=== PATIENT | male | born 1995 | race Caucasian/White ===

== ENCOUNTER 2019-11-28 02:53 | Inpatient (IN) | payer OTHER, SELFPAY ==
[2019-11-28] VITALS (26 sets, daily range): BP systolic 98–149; BP diastolic 51–87; O2SAT 98
[~2019-11-28] VITALS: Ht 185.4 cm; Wt 81.4 kg
[2019-11-28] MEDS ORDERED: PROPOFOL 1,000 MG/100 ML VIAL As Ordered ONE (03:01)
[2019-11-28] MEDS ORDERED: NS 1,000 ML IV ONE (03:15)
[2019-11-28 03:45] LABS: ABG BASE EXCESS -3.5 (-2.0-2.0); ABG HCO3 24.6 MEQ/L (22.0-26.0); ABG O2 SATURATION 97.6 % (95.0-99.0); ABG PARTIAL PRESSURE CO2 54.8 mmHg (35.0-45.0); ABG PARTIAL PRESSURE O2 111.5 mmHg (75.0-100.0); ABG STANDARD HCO3 21.6 MEQ/L (22.0-26.0); ABG TOTAL CO2 26.3 MEQ/L (22.0-29.0)
[2019-11-28 03:51] LABS: BASO # 0.1 10^3/uL (0.0-0.2); BASO % 0.4 % (0.0-1.0); EOS % 0.3 % (0.0-3.0); HEMATOCRIT 55.9 % (42.0-52.0); HEMOGLOBIN 18.8 g/dl (13.5-17.5); LYMPH # 2.4 10^3/uL (1.5-5.0); LYMPH % 15.4 % (24.0-44.0); MEAN CORPUSCULAR HEMOGLOBIN 30.1 pg (27.0-33.0); MEAN CORPUSCULAR HGB CONC 33.6 g/dl (32.0-36.5); MEAN CORPUSCULAR VOLUME 89.6 fl (80.0-96.0); MONO # 0.8 10^3/uL (0.0-0.8); MONO % 4.9 % (0.0-5.0); NEUTROPHILS # 12.3 10^3/uL (1.5-8.5); NEUTROPHILS % 78.5 % (36.0-66.0); PLATELET COUNT, AUTOMATED 334 10^3/uL (150-450); RED BLOOD COUNT 6.24 10^6/uL (4.30-6.10); WHITE BLOOD COUNT 15.7 10^3/uL (4.0-10.0)
[2019-11-28] MEDS ORDERED: SUCCINYLCHOLINE INJ 200 MG/10 ML VIAL (J0330) IV ONE (04:00)
[2019-11-28] MEDS ORDERED: propofoL 200 MG/20 ML VIAL IV ONE (04:00)
[2019-11-28 04:08] LABS: AMPHETAMINES LEVEL URINE NEGATIVE (NEGATIVE); BARBITURATES URINE NEGATIVE (NEGATIVE); BENZODIAZEPINES URINE NEGATIVE (NEGATIVE); CANNABINOIDS URINE NEGATIVE (NEGATIVE); COCAINE METABOLITE URINE NEGATIVE (NEGATIVE); METHADONE URINE NEGATIVE (NEGATIVE); OPIATES URINE NEGATIVE (NEGATIVE); PHENCYCLIDINE URINE NEGATIVE (NEGATIVE)
[2019-11-28] MEDS: propofoL 1,000 MG in IV 1 EA IV SCH ×10 (04:11→21:41)
[2019-11-28 04:50] LABS: ACETAMINOPHEN LEVEL < 2.0 UG/ML (10.0-30.0); ALBUMIN 4.3 GM/DL (3.2-5.2); ALT/SGPT 37 U/L (12-78); BILIRUBIN,DIRECT < 0.1 MG/DL (0.0-0.2); BILIRUBIN,TOTAL 0.4 MG/DL (0.2-1.0); BLOOD UREA NITROGEN 9 MG/DL (7-18); CALCIUM LEVEL 7.7 MG/DL (8.5-10.1); CARBON DIOXIDE LEVEL 27 MEQ/L (21-32); CHLORIDE LEVEL 107 MEQ/L (98-107); CPK CREATINE PHOSPHOKINASE 295 U/L (39-308); CREATININE FOR GFR 0.96 MG/DL (0.70-1.30); ETHYL ALCOHOL (ETHANOL) 0.373 % (0.000-0.010); GLOMERULAR FILTRATION RATE > 60.0 (>60); GLUCOSE, FASTING 173 MG/DL (70-100); POTASSIUM SERUM 4.1 MEQ/L (3.5-5.1); SALICYLATE LEVEL < 1.7 MG/DL (5.0-30.0); SODIUM LEVEL 141 MEQ/L (136-145); THYROID STIMULATING HORMONE 0.602 uIU/ML (0.358-3.740); TOTAL PROTEIN 8.5 GM/DL (6.4-8.2)
--- NOTE | 2019-11-28 04:51 | REPVR ---
PROCEDURE INFORMATION: Exam: CT Head Without Contrast Exam date and time: 11/28/2019 3:14 AM Age: 24 years old Clinical indication: Other: Od; Additional info: Drug overdose TECHNIQUE: Imaging protocol: Computed tomography of the head without contrast. Radiation optimization: All CT scans at this facility use at least one of these dose optimization techniques: automated exposure control; mA and/or kV adjustment per patient size (includes targeted exams where dose is matched to clinical indication); or iterative reconstruction. COMPARISON: No relevant prior studies available. FINDINGS: Brain: There is some thinning of the overlying left cortical mantle compared to the right which may reflect residua of old ischemic change. Ventricles: Enlarged left lateral ventricle with some midline shift to the right which is likely chronic. There is question of a persistent septum cavum pellucidum. Bones/joints: Unremarkable. No acute fracture. Sinuses: Visualized sinuses are unremarkable. No fluid levels. Mastoid air cells: Visualized mastoid air cells are well aerated. Soft tissues: Unremarkable. IMPRESSION: 1. Asymmetric enlargement of the left lateral ventricle and question of a persistent septum cavum pellucidum with some central midline shift to the right which appears to be chronic and may have a developmental origin. Remote ischemic changes not excluded. There is some thinning of the overlying left cortical mantle. 2. Otherwise negative noncontrast head CT. Electronically signed by: Jim Landon On 11/28/2019 04:51:11 AM
--- NOTE | 2019-11-28 04:53 | REPVR ---
PROCEDURE INFORMATION: Exam: CT Cervical Spine Without Contrast Exam date and time: 11/28/2019 3:14 AM Age: 24 years old Clinical indication: Other: Od; Additional info: Drug overdose TECHNIQUE: Imaging protocol: Computed tomography images of the cervical spine without contrast. Radiation optimization: All CT scans at this facility use at least one of these dose optimization techniques: automated exposure control; mA and/or kV adjustment per patient size (includes targeted exams where dose is matched to clinical indication); or iterative reconstruction. COMPARISON: No relevant prior studies available. FINDINGS: Tubes, catheters and devices: OG tube and ET tube in position. Vertebrae: No acute fracture. Normal alignment. Discs/Spinal canal/Neural foramina: No disc herniations. No spinal canal stenosis. No neural foraminal narrowing. Soft tissues: Unremarkable. Lungs: Lung apices are normal. IMPRESSION: 1. OG tube and ET tube in position. 2. Otherwise negative CT cervical spine. No fracture or subluxation is evident and no spinal or foraminal stenosis. Electronically signed by: Jim Landon On 11/28/2019 04:53:35 AM
[2019-11-28 04:54] LABS: ABG BASE EXCESS -4.1 (-2.0-2.0); ABG O2 SATURATION 98.8 % (95.0-99.0); ABG PARTIAL PRESSURE CO2 43.5 mmHg (35.0-45.0); ABG PARTIAL PRESSURE O2 146.6 mmHg (75.0-100.0); ABG STANDARD HCO3 21.2 MEQ/L (22.0-26.0); ABG TOTAL CO2 23.3 MEQ/L (22.0-29.0); ABG pH (ARTERIAL) 7.321 UNITS (7.350-7.450)
[2019-11-28] MEDS ORDERED: LIDOCAINE 2% 5ML JELLY UROJET TOP ONE (06:15)
--- NOTE | 2019-11-28 08:11 | REP ---
Clinical: Dyspnea. Comparison: None. Findings: The endotracheal tube extends into the right mainstem bronchus and requires repositioning. Nasogastric tube in satisfactory position. Subtle left lower lobe atelectasis cannot be excluded. No focal consolidation. No effusion. No pneumothorax. Skeletal structures intact. Impression: 1. Endotracheal tube in the right mainstem bronchus requires repositioning. 2. Left basilar atelectasis. Electronically Signed by Saturnino Poon MD 11/28/2019 08:03 A
--- NOTE | 2019-11-28 08:15 | REP ---
Clinical: Overdose. Endotracheal tube replacement. Comparison: 11/28/2019. Findings: The endotracheal tube is 1 cm above the tamela. Nasogastric tube in satisfactory position. Mediastinum and cardiac silhouette are normal. Lung arrington are relatively well aerated and without discrete focal consolidation, effusion, or pneumothorax. Skeletal structures are intact. Impression: 1. Endotracheal tube 1 cm above the tamela. 2. No focal consolidation or effusion. Electronically Signed by Saturnino Poon MD 11/28/2019 08:07 A
[2019-11-28] MEDS: D5W/0.9% SODIUM CHLORIDE 1,000 ML IV SCH ×2 (08:23→16:36)
[2019-11-28] MEDS: PANTOPRAZOLE 40MG INJ (PROTONIX) (C9113) IV SCH (08:26)
[2019-11-28] MEDS: CHLORHEXIDINE GLUCONATE 0.12 % 15ML UDC (PERIDEX ORAL RINSE) MT SCH ×2 (08:26→20:05)
[2019-11-28] MEDS: HEPARIN SOD (PORCINE) 5000 UNITS/ML VIAL (J1644 PER 1000UNITS) SC SCH ×3 (08:26→21:41)
[2019-11-28] MEDS: ALBUTEROL 90 MCG/ACT 8GM HFA INHALER INH SCH ×3 (09:30→18:33)
[2019-11-28] MEDS ORDERED: SUCCINYLCHOLINE 100 MG/5 ML SYRINGE (J0330) ONE (09:56)
[2019-11-28] MEDS ORDERED: propofoL 200 MG/20 ML VIAL ONE (09:56)
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
[2019-11-28] MEDS: MIDAZOLAM INJ 2 MG/2 ML VIAL (J2250) IV PRN ×5 (13:43→20:05)
[2019-11-29] VITALS (7 sets, daily range): BP systolic 128–156; BP diastolic 62–86
[2019-11-29] MEDS: ALBUTEROL 90 MCG/ACT 8GM HFA INHALER INH SCH ×2 (00:15→07:27)
[2019-11-29] MEDS: propofoL 1,000 MG in IV 1 EA IV SCH ×2 (00:34→02:40)
[2019-11-29] MEDS: MIDAZOLAM INJ 2 MG/2 ML VIAL (J2250) IV PRN ×3 (00:35→03:41)
[2019-11-29] MEDS: D5W/0.9% SODIUM CHLORIDE 1,000 ML IV SCH (01:34)
[2019-11-29 04:41] LABS: BASO % 0.3 % (0.0-1.0); EOS # 0.1 10^3/uL (0.0-0.5); EOS % 0.9 % (0.0-3.0); HEMATOCRIT 50.1 % (42.0-52.0); LYMPH # 2.5 10^3/uL (1.5-5.0); LYMPH % 19.1 % (24.0-44.0); MEAN CORPUSCULAR HEMOGLOBIN 31.1 pg (27.0-33.0); MEAN CORPUSCULAR HGB CONC 33.5 g/dl (32.0-36.5); MEAN CORPUSCULAR VOLUME 92.8 fl (80.0-96.0); MONO # 1.3 10^3/uL (0.0-0.8); MONO % 10.1 % (0.0-5.0); NEUTROPHILS # 8.9 10^3/uL (1.5-8.5); NEUTROPHILS % 69.3 % (36.0-66.0); PLATELET COUNT, AUTOMATED 270 10^3/uL (150-450); WHITE BLOOD COUNT 12.9 10^3/uL (4.0-10.0)
[2019-11-29 04:42] LABS: HEMOGLOBIN 16.8 g/dl (13.5-17.5)
[2019-11-29] MEDS: HEPARIN SOD (PORCINE) 5000 UNITS/ML VIAL (J1644 PER 1000UNITS) SC SCH (05:08)
[2019-11-29 05:31] LABS: ALBUMIN 3.3 GM/DL (3.2-5.2); ALT/SGPT 27 U/L (12-78); BILIRUBIN,TOTAL 0.6 MG/DL (0.2-1.0); BLOOD UREA NITROGEN 15 MG/DL (7-18); CALCIUM LEVEL 7.8 MG/DL (8.5-10.1); CARBON DIOXIDE LEVEL 29 MEQ/L (21-32); CHLORIDE LEVEL 112 MEQ/L (98-107); CHOLESTEROL LEVEL 177 MG/DL (< 200); CPK CREATINE PHOSPHOKINASE 359 U/L (39-308); CREATININE FOR GFR 1.37 MG/DL (0.70-1.30); GLOMERULAR FILTRATION RATE > 60.0 (>60); GLUCOSE, FASTING 104 MG/DL (70-100); LDH LACTATE DEHYDROGENASE 233 U/L (87-241); PHOSPHORUS LEVEL 3.1 MG/DL (2.5-4.9); POTASSIUM SERUM 3.7 MEQ/L (3.5-5.1); SODIUM LEVEL 144 MEQ/L (136-145); TOTAL PROTEIN 6.5 GM/DL (6.4-8.2); TRIGLYCERIDES LEVEL 773 MG/DL (<150)
--- NOTE | 2019-11-29 06:38 | ECGEPIP ---
[facility] - ED Test Date: 2019-11-28 Pat Name: ELENA LORENZO Department: Room: - Gender: Male [employer] Specialist: : [id number] Requested By: SORAYA MONROY Order Number: [id number] Reading MD: All Martel Measurements Intervals [place] Rate: 78 P: 18 MS: 155 QRS: 47 QRSD: 121 T: 31 QT: 401 QTc: 458 Interpretive Statements SINUS RHYTHM LEFT VENTRICULAR HYPERTROPHY AND ST-T CHANGE NONSPECIFIC ST T WAVE CHANGES DELAYED R WAVE PROGRESSION Electronically Signed on 11-29-2019 6:38:23 EDT by All Martel
[2019-11-29] MEDS: PANTOPRAZOLE 40MG INJ (PROTONIX) (C9113) IV SCH (10:01)
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
== END 2019-11-29 10:25 | disposition home or self-care (01) | DRG 208 ==
LOC: M ED 02:53 → EDBD 02:53 → M ED INP 05:53 → ENRESERVTM 06:24 → ENRESERVDT 06:24 → M ICU 07:46
PROVIDERS: ADMIT Internal Medicine Pulmonary Disease; ATTEND Internal Medicine Pulmonary Disease
PROC: 0BH17EZ Insertion of Endotracheal Airway into Trachea, Via Natural or Artificial Opening (ICD-10-PCS; principal; 2019-11-28)
PROC: 5A1945Z Respiratory Ventilation, 24-96 Consecutive Hours (ICD-10-PCS; 2019-11-28)
DX: J96.00 Acute respiratory failure, unspecified whether with hypoxia or hypercapnia (principal); J69.0 Pneumonitis due to inhalation of food and vomit; E86.0 Dehydration; F10.129 Alcohol abuse with intoxication, unspecified; Q04.9 Congenital malformation of brain, unspecified